=== PATIENT | female | born 1995 | race Caucasian/White ===

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

== ENCOUNTER 2018-11-14 17:18 | Emergency (ER) | payer OTHER ==
--- NOTE | 2018-11-14 19:44 | UC ---
Complaint Female HPI - HPI Summary HPI Summary: 2 DAYS OF SEVERE LOWER ABDOMINAL CRAMPING AND HEAVY VAGINAL BLEEDING. PATIENT HAS HAD A MIRENA IUD FOR THE PAST 3 YEARS AND HAS NOT HAD A REGULAR PERIOD SINCE THEN. HAS OCCASIONAL MILD SPOTTING BUT CERTAINLY NOT HEAVY BLEEDING SHE IS HAVING NOW. SHE IS HAVING TO CHANGE HER FEMININE HYGIENE PRODUCT EVERY HOUR IT IS SOAKING THROUGH. SHE HAS UNPROTECTED SEX WITH HER LONG-DISTANCE BOYFRIEND AND LAST SAW HIM ABOUT 1 MONTH AGO. STARTED HAVING CRAMPY ABDOMINAL PAIN AND BREAST TENDERNESS ABOUT 2 WEEKS AGO. - History Of Current Complaint Chief Complaint: UCGU Stated Complaint: SEVERE MENSTRUAL CRAMPS Time Seen by Provider: 11/14/18 18:46 Hx Obtained From: Patient Hx Last Menstrual Period: iud Onset/Duration: Gradual Onset, Lasting Days, Still Present Timing: Constant Severity Initially: Moderate Severity Currently: Moderate Pain Intensity: 8 Pain Scale Used: 0-10 Numeric Character: Cramping Aggravating Factor(s): Nothing Alleviating Factor(s): Nothing Associated Signs And Symptoms: Positive: Vaginal Bleeding/Discharge. Negative: Fever, Vaginal Discharge, Nausea - Allergies/Home Medications Allergies/Adverse Reactions: Allergies Allergy/AdvReac Type Severity Reaction Status Date / Time No Known Allergies Allergy Verified 11/14/18 18:03 Home Medications: Home Medications Ibuprofen 600 mg PO 11/14/18 [History] PMH/Surg Hx/FS Hx/Imm Hx Previously Healthy: Yes - Surgical History Surgical History: None - Family History Known Family History: Negative: Cardiac Disease, Hypertension, Diabetes - Social History Alcohol Use: Occasionally Substance Use Type: None Smoking Status (MU): Never Smoked Tobacco Review of Systems All Other Systems Reviewed And Are Negative: Yes Constitutional: Positive: Negative Respiratory: Positive: Negative Cardiovascular: Positive: Negative Gastrointestinal: Positive: Abdominal Pain Genitourinary: Positive: Abnormal Bleeding Physical Exam Triage Information Reviewed: Yes Appearance: Well-Appearing, No Pain Distress, Well-Nourished Vital Signs: Initial Vital Signs Temp 98.8 F 11/14/18 17:58 Pulse 96 11/14/18 17:58 Resp 18 11/14/18 17:58 BP 115/75 11/14/18 17:58 Pulse Ox 99 11/14/18 17:58 Vital Signs Reviewed: Yes Eyes: Positive: Conjunctiva Clear ENT: Positive: Hearing grossly normal Neck: Positive: Supple Respiratory Exam: Normal Cardiovascular Exam: Normal Abdomen Description: Positive: Nontender, Soft. Negative: CVA Tenderness (R), CVA Tenderness (L), Distended, Guarding Musculoskeletal: Positive: No Edema Neurological: Positive: Alert Psychological: Positive: Age Appropriate Behavior Skin: Negative: Rashes Diagnostics - Radiology TRANSVAGINAL US Radiology Interpretation Completed By: Radiologist Summary of Radiographic Findings: 1. Normal uterus with IUD in place. 2. Moderate amount of free fluid and a small cyst in the left ovary. Complaint Female Dx - Course Course Of Treatment: ULTRASOUND TODAY SHOWS IUD IN ADEQUATE PLACEMENT. MILDLY COLLAPSED CYST IN THE LEFT OVARY AND SOME FREE FLUID. NOTHING TO EXPLAIN PATIENT'S ACUTE SYMPTOMS. SHE MAY SIMPLY BE HAVING AN IRREGULAR MENSTRUAL CYCLE HOWEVER I HAVE RECOMMENDED SHE FOLLOW UP WITH [facility] FOR FURTHER EVALUATION. TO THE ER IF SYMPTOMS WORSEN. PATIENT DECLINES PELVIC EXAM TODAY. DECLINES STD TESTING. - Differential Dx/Diagnosis Provider Diagnosis: Abnormal uterine bleeding Discharge - Sign-Out/Discharge Documenting (check all that apply): Patient Departure All imaging exams completed and their final reports reviewed: Yes - Discharge Plan Condition: Stable Disposition: HOME Patient Education Materials: Dysfunctional Uterine Bleeding (ED) Referrals: [facility] [Provider Group] - 2 Days Clay Allen MD [Medical Doctor] - 2 Days Additional Instructions: YOUR ULTRASOUND TODAY DID NOT SHOW ANYTHING ACUTELY ABNORMAL THAT WOULD EXPLAIN YOUR BLEEDING. IUD IS IN GOOD PLACE. URINE TEST INDICATES THAT YOU ARE RELATIVELY DRY - BE SURE TO STAY WELL HYDRATED. URINE TEST IS NEGATIVE. THE BLEEDING MAY SIMPLY BE DUE TO A MENSTRUAL CYCLE HOWEVER I WOULD RECOMMEND YOU FOLLOW-UP WITH [facility]. GO TO THE ER WITHOUT FAIL IF YOU DEVELOP WORSENING PAIN, FEVER, DIZZINESS, SHORTNESS OF BREATH, CHEST PAIN, PERSISTENT BLEEDING OR ANY OTHER CONCERNING SYMPTOMS. - Billing Disposition and Condition Condition: STABLE Disposition: Home
[2018-11-14 20:10] VITALS: BP 112/71
== END 2018-11-14 21:05 | disposition home or self-care (01) ==
LOC: UCEAST 17:18
DX: N93.9 Abnormal uterine and vaginal bleeding, unspecified (principal); N83.202 Unspecified ovarian cyst, left side; Z97.5 Presence of (intrauterine) contraceptive device
CPT/HCPCS: 76830; 81003; 84702; 99211; G0463

== ENCOUNTER 2019-03-17 12:32 | Emergency (ER) | payer OTHER ==
[2019-03-17 12:45] VITALS: BP 112/76
--- NOTE | 2019-03-17 13:22 | UC ---
FLU HPI - HPI Summary HPI Summary: 23-year-old female presents with onset of sore throat 3 days ago. States yesterday started developing fever, chills, general malaise, body aches, nasal congestion, and runny nose. Last night had one episode of vomiting. Continues to have some mild nausea but was able to eat this morning without further episodes of vomiting. Denies ear pain, dysphagia, cough, chest pain, SOB, abdominal pain, or diarrhea. - History of Current Complaint Chief Complaint: UCGeneralIllness Stated Complaint: FEVER SORE THROAT RESP ISSUE VOMITING Time Seen by Provider: 03/17/19 13:08 Hx Obtained From: Patient Hx Last Menstrual Period: 03/07/19 Pain Intensity: 3 - Allergy/Home Medications Allergies/Adverse Reactions: Allergies Allergy/AdvReac Type Severity Reaction Status Date / Time ibuprofen Allergy Hives Verified 03/17/19 12:46 [From DayQuil Sinus Pressure/Pain] pseudoephedrine Allergy Hives Verified 03/17/19 12:46 [From DayQuil Sinus Pressure/Pain] PMH/Surg Hx/FS Hx/Imm Hx Previously Healthy: Yes - Denies significant PMH - Surgical History Surgical History: Yes Surgery Procedure, Year, and Place: cyst r ooph - Family History Known Family History: Positive: Non-Contributory - Social History Occupation: Student Lives: Dormitory/Roommates Alcohol Use: Weekly Substance Use Type: None Smoking Status (MU): Never Smoked Tobacco Review of Systems All Other Systems Reviewed And Are Negative: Yes Constitutional: Positive: Fever, Chills, Fatigue Skin: Negative: Rash Eyes: Negative: Drainage, Eye Redness ENT: Positive: Sore Throat, Nasal Discharge, Sinus Congestion. Negative: Ear Ache Respiratory: Negative: Shortness Of Breath, Cough Cardiovascular: Negative: Palpitations, Chest Pain Gastrointestinal: Positive: Vomiting, Nausea. Negative: Abdominal Pain, Diarrhea Genitourinary: Positive: Negative Musculoskeletal: Positive: Negative Neurological: Positive: Negative Is Patient Immunocompromised?: No Physical Exam - Summary Physical Exam Summary: GENERAL APPEARANCE: Well developed, well nourished, alert and cooperative, and appears to be in no acute distress. EYES: Conjunctiva clear. No drainage. EARS: External auditory canals and tympanic membranes clear, hearing grossly intact. NOSE: Mild-moderate nasal congestion. No nasal discharge. THROAT: Pharyngeal erythema. Palatal petechiae. No tonsilar inflammation, swelling, exudate, or lesions. Uvula midline. Oral cavity normal. Teeth and gingiva in good general condition. NECK: Neck supple, non-tender without lymphadenopathy. CARDIAC: Normal S1 and S2. No S3, S4 or murmurs. Rhythm is regular. There is no peripheral edema, cyanosis or pallor. Extremities are warm and well perfused. Capillary refill is less than 2 seconds. Peripheral pulses intact. LUNGS: Clear to auscultation without rales, rhonchi, wheezing or diminished breath sounds. ABDOMEN: Positive bowel sounds. Soft, nondistended, nontender. No guarding or rebound. No masses or hepatosplenomegally. MUSKULOSKELETAL: ROM intact to all extremities. No joint erythema or tenderness. Normal muscular development. Normal gait. SKIN: Skin normal color, texture and turgor with no lesions or eruptions. Triage Information Reviewed: Yes Vital Signs: Initial Vital Signs Temp 99 F 03/17/19 12:41 Pulse 93 03/17/19 12:41 Resp 20 03/17/19 12:41 BP 112/76 03/17/19 12:41 Pulse Ox 100 03/17/19 12:41 Vital Signs Reviewed: Yes Flu Course/Dx - Course Course Of Treatment: 23-year-old female presents with onset of sore throat 3 days ago. States yesterday started developing fever, chills, general malaise, body aches, nasal congestion, and runny nose. Last night had one episode of vomiting. Continues to have some mild nausea but was able to eat this morning without further episodes of vomiting. Denies ear pain, dysphagia, cough, chest pain, SOB, abdominal pain, or diarrhea. Afebrile. VSS. Patient had mild-moderate nasal congestion, few palantal petechiae, pharyngeal erythema without tonsilar swelling or exudate, no cervical lymphadenopathy, and otherwise unremarkable exam. Rapid strep test was negative. Recommending symptomatic treatment for viral URI. She is to return here or follow up at the [facility] in 5 days if no improvement in symptoms. Anticipatory guidance and warning symptoms were reviewed with patient. Verbalizes understanding and agrees with POC. - Differential Dx/Diagnosis Differential Diagnosis/HQI/PQRI: Bronchitis, Influenza, Pneumonia, RSV, Upper Respiratory Infection Provider Diagnosis: Viral URI Discharge ED - Sign-Out/Discharge Documenting (check all that apply): Patient Departure All imaging exams completed and their final reports reviewed: No Studies - Discharge Plan Condition: Stable Disposition: HOME Patient Education Materials: Upper Respiratory Infection (ED) Referrals: No Primary Care Phys,[facility] [Primary Care Provider] - Additional Instructions: The rapid strep test performed in the clinic today was negative. Your history and exam are consistent with a viral upper respiratory infection. Viral infections do not respond to antibiotics and are limited to the treatment of symptoms. Viral infections typically run their course in 7-10 days. Drink plenty of fluids to avoid dehydration especially if you are running any fever. Use a saline rinse kit such as Neti Pot or NeilMed at least twice a day to help thin secretions and promote drainage of the sinuses. Use fluticasone (Flonase) nasal spray 2 sprays each nostril once daily. Use an over the counter decongestant such as Sudafed according to directions for the congestion. Take over the counter acetaminophen (Tylenol) or ibuprofen (Advil, Motrin) according to directions as needed for pain or fever. Use salt water gargles several times a day if you have a sore throat. You may also use Chloraseptic spray or Cepacol lonzenges according to directions which contain a numbing medication and can provide some temporary relief from your sore throat. Return here or follow up with the [facility] in 5 days if symptoms are not improving. Seek immediate medical attention in the emergency room if you have fever greater than 100.5 F despite taking acetaminophen or ibuprofen, have chest pain , difficulty breathing, are unable to swallow, or have any worsening of symptoms. - Billing Disposition and Condition Condition: STABLE Disposition: Home
== END 2019-03-17 13:32 | disposition home or self-care (01) ==
LOC: UCEAST 12:32
DX: J06.9 Acute upper respiratory infection, unspecified (principal)
CPT/HCPCS: 87651; 99211; G0463